=== PATIENT | male | born 1985 | race Caucasian/White ===

== ENCOUNTER 2019-03-20 01:55 | Emergency (ER) | payer MEDICAID ==
[~2019-03-20] VITALS: Ht 182.9 cm; Wt 90.7 kg
[2019-03-20] MEDS ORDERED: SERTRALINE HCL50 MG PO (02:05)
[2019-03-20] MEDS ORDERED: BUPROPION XL300 MG PO (02:06)
== END 2019-03-20 02:39 | disposition home or self-care (01) ==
LOC: ED 01:55
DX: K21.9 Gastro-esophageal reflux disease without esophagitis (principal); F41.9 Anxiety disorder, unspecified; Z79.899 Other long term (current) drug therapy
CPT/HCPCS: 99283